=== PATIENT | female | born 1945 | race Caucasian/White ===

== ENCOUNTER → 2024-02-26 07:59 | Outpatient (REF) | payer OTHER, SELFPAY | LOC: WDC 07:59 | PROVIDERS: ATTENDING PHYSICIAN Student in an Organized Health Care Education/Training Program | DX: Z12.31 Encounter for screening mammogram for malignant neoplasm of breast (principal) | CPT/HCPCS: 77063; 77067 ==

== ENCOUNTER 2024-03-06 19:32 | Emergency (ER) | payer OTHER, SELFPAY ==
[2024-03-06 19:35] VITALS: BP 113/59
--- NOTE | 2024-03-06 22:04 | ED.SKININJ ---
HPI-Injury
General
Chief Complaint: Skin Problem
Source: patient
Exam Limitations: none
Time Seen by Provider: 03/06/24 21:34
Travel History
Have you had any contact with someone who has COVID-19?: No
Do you have any symptoms of coronavirus? Fever > 100 degrees, chills, cough, shortness of breath, sore throat, loss of taste or smell, muscle aches, or headache?: No
History of Present Illness-Injury
Initial Injury comments:
78-year-old female otherwise healthy presents complaining of mainly itchy bull's-eye shaped rash over the forearm. This started yesterday. She is initially seen at the urgent care and had diffuse erythema to the arm and thought to have cellulitis.
She was placed on Keflex. She had 2 doses of this today. She states the rash changed throughout the day and became more of a bull's-eye in shape and is itchy. She denies any significant pain or fever. She is nondiabetic. No fever chest pain or
shortness of breath. No other complaints at this time
Past History
Past History
ED Past Medical History: Other (Migraines, diverticulosis)
ED Past Surgical History: Gynecological and Orthopedic
Social History
Tobacco: Non-smoker
Alcohol: None
Personal: Partner
Phy Exam
Physical Exam
Physical Exam:
General: Well-appearing female no acute respiratory distress
HEENT: Normocephalic atraumatic
Skin: Slightly raised annular pruritic rash over the right volar forearm proximally with surrounding erythema. This is nontender. No lymphangitic streaking. Magnifying glass was used and there is no evidence of foreign body in the center. No
fluctuance.
Musculoskeletal exam: Full range of motion right elbow
Course
Orders/Labs/Results
Orders:
Orders
03/06/24 22:03
Doxycycline [Vibramycin] 100 mg PO NOW STA
03/06/24 22:20
Complete Blood Count/With Diff Urgent
Comprehensive Metabolic Panel Urgent
Lyme Progressive Urgent
Abnormal Lab Results
03/06/24
22:20
RBC 4.00 L 10^6/uL
(4.20-5.40)
Hct 35.9 L %
(37.0-47.0)
Absolute Monos (auto) 0.8 H 10^3/uL
(0.1-0.6)
Neutrophils % 41.0 L %
(42.2-75.2)
Monocytes % 14.6 H %
(1.7-9.3)
Eosinophils % 6.7 H %
(0-6)
Sodium 132 L mmol/L
(135-145)
BUN 30 H mg/dl
(7-17)
Creatinine 0.5 L mg/dL
(0.6-1.0)
03/06/24 22:20
03/06/24 22:20
Vital Signs
Initial and Last Documented VS:
Initial Vital Signs
Temp Pulse Resp BP Pulse Ox
98.4 F 85 14 113/59 99
03/06/24 19:35 03/06/24 19:35 03/06/24 19:35 03/06/24 19:35 03/06/24 19:35
Last Documented Vital Signs
Temp Pulse Resp BP Pulse Ox
98.4 F 65 16 116/46 100
03/06/24 19:35 03/06/24 22:22 03/06/24 22:22 03/06/24 22:22 03/06/24 22:22
MDM/Problems Addressed
Differential Diagnosis Includes:
Rash right volar forearm. Question possible cellulitis versus inflammatory response to insect bite. Patient concerned about potential Lyme exposure. Will order Lyme test and switch to doxycycline given the appearance of the rash. Recommended
Benadryl for itch. She should receive a call if the test is positive
*Critical Care Note
Total Time (30-74mins, 75-104mins- exclusive of procedures): Not Applicable
ED Attending Note
-
Portions of this chart may have been created with voice recognition software.� Occasional wrong word or��sound alike� substitutions may have occurred due to the inherent limitations of voice recognition software.
Discharge Plan
Departure
Patient Disposition: Home (Routine Discharge)
Date of Disposition: 03/06/24
Time of Disposition: 22:08
Patient with high blood pressure during this ER visit?: No
Discharge Problem:
Rash
Instructions: Skin Rash (DC), Cellulitis (Skin Infection), Adult (DC)
Prescriptions:
New
doxycycline hyclate 100 mg tablet
100 mg PO BID Qty: 27 0RF
Referrals:
Sheri Gerard NP [Family Provider] -
Activity Restrictions/Additional Instructions:
You may stop cephalexin. Start doxycycline twice a day. Please be aware doxycycline may make you more sensitive to the sun. You should receive a call if your Lyme test is positive. Return here for worsening symptoms otherwise
Interventions
Interventions:
*Risk Screen - Suicide Last Done: 03/06/24 19:35
*General Assessment Last Done: 03/06/24 19:35
*Neglect/Abuse Screening Last Done: 03/06/24 19:35
ED- Fall Risk Assessment Last Done: 03/06/24 22:27
*ED COVID-19 Vaccine History Last Done: 03/06/24 22:26
*Nursing Disposition Last Done: 03/06/24 22:28
ED-Skin Assessment Last Done: 03/06/24 22:26
Discharge Date and Time
Discharge Date/Time: 03/06/24 22:30
Print Language: [id number]
[2024-03-06 22:22] VITALS: BP 116/46
[2024-03-06] MEDS: VIBRAMYCIN 100 MG PO (22:22)
[2024-03-06 22:29] LABS: % Basophils 1.9 % (0-2); % Eosinophils 6.7 % (0-6); % Immature Granulocytes 0.2 % (0-0.5); % Lymphocytes 35.6 % (20.5-51.1); % Monocytes 14.6 % (1.7-9.3); Absolute Basophils 0.1 10^3/uL (0-0.2); Absolute Eosinophils 0.4 10^3/uL (0-0.7); Absolute Lymphocytes 1.9 10^3/uL (1.2-3.4); Absolute Monocytes 0.8 10^3/uL (0.1-0.6); Absolute Neutrophils 2.2 10^3/uL (1.4-6.5); Hematocrit 35.9 % (37.0-47.0); Hemoglobin 12.4 g/dL (12.0-16.0); Mean Corp Hgb Conc. 34.5 g/dL (33.0-37.0); Mean Corpuscular Volume 89.8 fL (81.0-99.0); Mean Platelet Volume 9.3 fL (7.4-10.4); Nucleated Red Blood Cells % 0 %; Platelet Count 321 10^3/uL (130-400); Red Cell Dist. Width 13.3 % (11.5-14.5); White Blood Cell Count 5.4 10^3/uL (4.8-10.8)
[2024-03-06 22:44] LABS: ALT (SGPT) 17 U/L (0-35); AST (SGOT) 26 U/L (14-36); Albumin 3.9 g/dl (3.5-5.0); Alkaline Phosphatase 69 U/L (38-126); Blood Urea Nitrogen 30 mg/dl (7-17); Calcium 9.3 mg/dl (8.4-10.2); Carbon Dioxide 26 mmol/L (22-30); Chloride 102 mmol/L (98-107); Glucose 98 mg/dl (70-99); Potassium 4.6 mmol/L (3.5-5.1); Sodium 132 mmol/L (135-145); Total Bilirubin 0.5 mg/dl (0.2-1.3); Total Protein 6.5 g/dl (6.3-8.2); eGFR > 60.00
[2024-03-07 16:55] LABS: Lyme Antibody Screen, EIA Negative (Negative)
== END 2024-03-06 22:30 | disposition home or self-care (01) ==
LOC: EMR 19:32
PROVIDERS: Physician Assistant; EMERGENCY PHYSICIAN Emergency Medicine; FAMILY PHYSICIAN Nurse Practitioner Family
DX: R21 Rash and other nonspecific skin eruption (principal)
CPT/HCPCS: 99283; 80053; 85025; 86618

== ENCOUNTER → 2024-04-25 12:33 | Outpatient (REF) | payer OTHER, SELFPAY | LOC: RAD 12:33 | PROVIDERS: ATTENDING PHYSICIAN Family Medicine; REFERRING PHYSICIAN Chiropractor | DX: M54.2 Cervicalgia (principal); G44.1 Vascular headache, not elsewhere classified | CPT/HCPCS: 72040 ==

== ENCOUNTER → 2024-07-14 09:10 | Outpatient (REF) | payer OTHER, SELFPAY | LOC: RAD 09:10 | PROVIDERS: ATTENDING PHYSICIAN Family Medicine | DX: M85.89 Other specified disorders of bone density and structure, multiple sites (principal) | CPT/HCPCS: 77080 ==

== ENCOUNTER → 2025-04-04 16:33 | Outpatient (REF) | payer OTHER, SELFPAY | LOC: WDC 16:33 | PROVIDERS: ATTENDING PHYSICIAN Family Medicine | DX: Z12.31 Encounter for screening mammogram for malignant neoplasm of breast (principal) | CPT/HCPCS: 77063; 77067 ==